=== PATIENT | female | born 1995 | race Caucasian/White ===

== ENCOUNTER → 2022-08-26 10:15 | Outpatient (CLI) | payer OTHER, SELFPAY ==
--- NOTE | 2022-08-26 10:19 | DI.US.S_ITS ---
PROCEDURE: US OB <= 14 WEEKS FETUS INDICATIONS: DATING OUTSIDE/PRIOR DATING DATA: Last menstrual period (LMP): 06/15/2022 LMP-based estimated date of delivery (ARUN): 03/22/2023 First dating scan (date and location): 08/26/2022 Estimated date of delivery (ARUN) from first dating scan: See below The calculations are made using the working ARUN of 03/22/2023. TECHNIQUE: Real-time scanning was performed of the fetus and maternal pelvic organs, with image documentation. Endovaginal scanning was also performed to better visualize the fetus and maternal ovaries. COMPARISON: None. FINDINGS: Embryo: Single intrauterine gestational sac is seen with possible tissue and 2 yolk sacs seen. Sigel-rump length measures 0.4 cm. Estimated gestational age is 6 weeks, 0 day. Estimated gestational age based on gestational sac size is 8 weeks, 4 days. Heart rate: No cardiac activity is detected. There is suggestion of small perigestational hemorrhage measures 1.5 x 1.9 x 0.8 cm in size. Maternal organs: Ovaries are visualized and are grossly within normal limits. IMPRESSION: 1. Finding is concerning for intrauterine demise. Correlation with serial beta HCG level and follow-up ultrasound is recommended. 2. Small subchorionic hematoma as above. We strive to produce accurate, complete, and clear reports of imaging services. To assist us in improving patient care, this report was composed using standard report templates and voice recognition software. Therefore, it may contain abnormal punctuation, insertions and/or omissions. Occasional wrong-word or sound-alike substitutions may occur. Though we review the report and make efforts to correct it, we do recommend that the report be read carefully in proper context to recognize any text inaccuracies. Dictated by: Royal Dennison M.D. on 08/26/2022 at 15:50 Approved by: Royal Dennisno M.D. on 08/26/2022 at 15:53
== END ==
PROVIDERS: Referring Provider Obstetrics & Gynecology; Visit Provider Obstetrics & Gynecology
DX: Z36.87 Encounter for antenatal screening for uncertain dates (principal)
CPT/HCPCS: 76801; 76817